=== PATIENT | female | born 1950 | race Caucasian/White ===

== ENCOUNTER → 2022-08-05 | Outpatient (CLI) | payer OTHER ==
--- NOTE | 2022-08-05 16:18 | CT ---
EXAMINATION TYPE: CT cervical spine wo con CT DLP: 457.6 mGycm, Automated exposure control for dose reduction was used. DATE OF EXAM: 08/05/2022 4:10 PM COMPARISON: None. CLINICAL INDICATION:Female, 72 years old with history of S13.4XXA Sprain of ligaments of cervical spi ne; , Sprain of ligaments of cervical spine. TECHNIQUE: Axial CT images from the skull base to the inferior aspect of T2 we obtained without intra venous contrast. Coronal and sagittal reformatted images were also reviewed. FINDINGS: Fracture: None. Osseous structures: Multilevel degenerative disc disease changes with endplate spurring and disc oste ophyte complex's. Vertebral alignment: Alignment within normal limits. Spinal canal/Neural Foramina: No evidence of significant spinal canal narrowing. No evidence for sign ificant neural foraminal stenosis. Neck soft tissues: Prevertebral soft tissues are within normal limits. Other: The airway is patent. The lung apices are clear. Calcification of the nuchal ligament. IMPRESSION: 1. No evidence of cervical spine fracture. 2. Mild multilevel degenerative disc disease.
--- NOTE | 2022-08-05 16:31 | XR ---
EXAMINATION TYPE: XR knee complete RT DATE OF EXAM: 08/05/2022 4:17 PM INDICATION: Patient age:Female; 72 years old; Reason for study: S13.4XXA, S43.401A, S80.01XA; COMPARISON: None. TECHNIQUE: The Right knee(s) was examined in Frontal, lateral and oblique projections. FINDINGS: There is cortical irregularity involving the patella as seen on lateral view. There is a small joint effusion.. No additional suspicious cortical irregularity or defect visualized. There is a fabella present. IMPRESSION: Cortical defect involving the patella articular surface, best seen on lateral view with associated sm all joint effusion. Finding could represent degeneration changes versus traumatic injury. Consider fu rther evaluation with CT.
--- NOTE | 2022-08-05 16:32 | XR ---
EXAMINATION TYPE: XR shoulder complete RT DATE OF EXAM: 08/05/2022 4:17 PM INDICATION: Patient age:Female; 72 years old; Reason for study: S13.4XXA, S43.401A, S80.01XA; COMPARISON: None TECHNIQUE: The right shoulder was examined in AP, internally rotated and scapular Y projections. . FINDINGS: No evidence of acute osseous pathology, joint dislocation, or soft tissue swelling. The remaining por tions of the visualized chest are unremarkable. Mild degeneration of the acromioclavicular joint. IMPRESSION: 1. No acute osseous pathology. 2. Mild osteoarthrosis of the right shoulder.
== END | disposition home or self-care (01) ==
LOC: RADCTMAIN 15:55
PROVIDERS: ATTEND Emergency Medicine
DX: S13.4XXA Sprain of ligaments of cervical spine, initial encounter (principal); S43.401A Unspecified sprain of right shoulder joint, initial encounter; S80.01XA Contusion of right knee, initial encounter; M50.30 Other cervical disc degeneration, unspecified cervical region; M19.011 Primary osteoarthritis, right shoulder; M25.461 Effusion, right knee
CPT/HCPCS: 72125

== ENCOUNTER → 2022-08-10 | Outpatient (CLI) | payer OTHER ==
--- NOTE | 2022-08-10 12:40 | CT ---
EXAMINATION TYPE: CT knee RT wo con CT DLP: 484.1 mGycm, Automated exposure control for dose reduction was used. DATE OF EXAM: 08/10/2022 12:22 PM COMPARISON: 08/05/2022 radiograph CLINICAL INDICATION:Female, 72 years old with history of S80.01XA anterior knee pain, right knee pain TECHNIQUE: Axial images were obtained of the a . Additional coronal and sagittal reformatted images and soft tissue and bone window were obtained for review. 3-D reconstruction was created on a [employer] workstation. Contrast used: None Oral contrast used: None FINDINGS: Cortical defect along the patellar articular surface correlates with degeneration changes w ith full-thickness suspected cartilage loss of the lateral patellar facet. No evidence of acute fract ure. Osteophyte formation of the patellofemoral groove the femoral condyles, tibial plateau and the p atella are present. There is no evidence of fracture, subluxation, or dislocation. No significant so ft tissue swelling or joint effusion is identified. No focal muscular atrophy or edema is identified. No radiopaque foreign body identified. There is a fabella present. IMPRESSION: 1. Cortical defect of the patella correlates with subchondral cystic change likely secondary to full -thickness cartilage defect in the setting of marked patellofemoral joint osteoarthrosis. 2. No evidence of acute fracture.
== END | disposition home or self-care (01) ==
LOC: RADCTMAIN 11:50
PROVIDERS: ATTEND Emergency Medicine
DX: S80.01XA Contusion of right knee, initial encounter (principal); M17.11 Unilateral primary osteoarthritis, right knee

== ENCOUNTER → 2022-08-24 | Outpatient (CLI) | payer OTHER ==
--- NOTE | 2022-08-24 15:01 | MR ---
EXAMINATION TYPE: MR shoulder RT wo con DATE OF EXAM: 08/24/2022 COMPARISON: Radiograph 08/05/2022 HISTORY: 72-year-old female S43.401D, Right shoulder sprain S/P fall. TECHNIQUE: Multiplanar, multisequence imaging of the right shoulder is performed without contrast. FINDINGS: Linear intrinsic signal involving the intracapsular portion of the long head biceps tendon. There is mild tenosynovial fluid along the extracapsular portion which remains appropriate situated along the bicipital groove. Some heterogeneous signal of the subscapularis tendon. The majority of the tendon remains intact. There is moderate degenerative change of the joint with joint space narrowing and marginal spurring. Mild mass effect onto the underlying myotendinous junction of the supraspinatus. There is diffuse heterogeneity and thickening of both supraspinatus and infraspinatus tendons. Extensive bursal sided fraying of the supraspinatus tendon. The anterior to mid fibers of the suprasp inatus tendon are very irregular and demonstrate areas of bursal sided tearing anteriorly and articul ar sided tearing more posteriorly along the mid fibers. Given a small effusion within the overlying s ubacromial/subdeltoid bursa and fluid within the lateral deltoid shelf, unable to exclude subtle, irr egular full-thickness extension of tear. Contiguous intrasubstance tear extends back 9 mm to involve the posterior supraspinatus tendon fibers . No patsy retracted tear is seen. The intraspinous tendon is thickened and inhomogeneous but otherwise intact. Minimal fatty streaks within the rotator cuff musculature, especially the subscapularis muscle. There is edematous thickening throughout the rotator cuff interval. Patsy thickening of the coracohum eral ligament and mild thickening of the axillary recess. Physiologic glenohumeral joint fluid. Mild degenerative change throughout the glenohumeral joint. Some increased signal noted at the superi or glenoid labrum extending to the biceps anchor. No care labral cyst. Suspect a normal variant subla bral foramen. No os acromiale or Hill-Sachs deformity. Heterogeneous red marrow hyperplasia which can be seen in s etting of anemia, obesity, smoking, chronic disease. IMPRESSION: 1. Diffuse rotator cuff tendinosis. There is irregular tear of the anterior to mid supraspinatus tend on fibers involving the bursal surface anteriorly and the articular surface more posteriorly. Given f luid in the overlying bursa and lateral deltoid shelf, suspect subtle irregular full-thickness extens ion of tear. No patsy retracted tear. 2. Suspect interstitial tear of the intracapsular long head biceps tendon and possible contiguous SLA P tear of the superior labrum. Mild overall glenohumeral joint OA. 3. Moderate AC joint OA with mild subacromial impingement. 4. Edematous thickening in the region of the rotator cuff interval. Mild thickening of the axillary r ecess as well. Findings could be secondary to a mild capsular sprain. Correlate for any underlying ch ronic symptoms of adhesive capsulitis.
== END | disposition home or self-care (01) ==
LOC: RADMRIMAIN 13:00
PROVIDERS: ATTEND Emergency Medicine
DX: S43.401D Unspecified sprain of right shoulder joint, subsequent encounter (principal); S13.4XXD Sprain of ligaments of cervical spine, subsequent encounter; M75.111 Incomplete rotator cuff tear or rupture of right shoulder, not specified as traumatic; S80.01XD Contusion of right knee, subsequent encounter; M19.011 Primary osteoarthritis, right shoulder

== ENCOUNTER → 2023-04-08 | Outpatient (CLI) | payer OTHER ==
[2023-04-08 20:06] LABS: Basophils # (A) 0.04 X 10*3/uL (0.00-0.10); Basophils % (A) 0.4 %; Eosinophils # (A) 0.42 X 10*3/uL (0.04-0.35); Eosinophils % (A) 4.7 %; HCT 41.8 % (37.2-46.3); HGB 13.9 d/dL (12.0-15.0); Lymphocytes # (A) 2.54 X 10*3/uL (0.90-5.00); Lymphocytes % (A) 28.5 %; MCH 30.1 pg (27.0-32.0); MCHC 33.3 d/dL (32.0-37.0); MCV 90.5 FL (80.0-97.0); Mean Platelet Volume 10.3 FL (9.5-12.2); Monocytes # (A) 0.66 X 10*3/uL (0.20-1.00); Monocytes % (A) 7.4 %; NRBC Per 100 WBC 0 X 10*3/uL (0.00-0.01); Neutrophils # (A) 5.22 X 10*3/uL (1.80-7.70); Neutrophils % (A) 58.8 %; Platelet Count 238 X 10*3/uL (140-440); RBC 4.62 X 10*6/uL (4.10-5.20); RDW 13.2 % (11.5-14.5)
[2023-04-08 20:15] LABS: BUN/Creat Ratio 21.11 Ratio (12.00-20.00); Calcium 9.8 mg/dL (8.7-10.3); Carbon Dioxide 24.4 mmol/L (21.6-31.8); Chloride 105 mmol/L (96-109); Glucose 84 mg/dL (70-110); Potassium 4.2 mmol/L (3.5-5.5); Sodium 141 mmol/L (135-145)
== END | disposition home or self-care (01) ==
LOC: LABPAT 14:28
PROVIDERS: ATTEND Orthopaedic Surgery
DX: Z01.812 Encounter for preprocedural laboratory examination (principal); M75.41 Impingement syndrome of right shoulder
CPT/HCPCS: 80048; 85025

== ENCOUNTER 2023-04-21 05:47 | Day surgery (SDC) | payer OTHER ==
[2023-04-19 15:48] VITALS: BMI 26.2
[~2023-04-21 05:47] MED LIST: DEXAMETHASONE SOD PHOSPHATE 4 MG/ML 1 ML VIAL IV ONE; LACTATED RINGERS 1,000 ML IV SCH; ONDANSETRON 4 MG/2 ML VIAL IVP ONE
[2023-04-21] MEDS ORDERED: ONDANSETRON 4 MG/2 ML VIAL IVP ONE (06:45)
[2023-04-21] MEDS ORDERED: MIDAZOLAM 2 MG/2 ML VIAL IVP ONE (06:52)
[2023-04-21] MEDS ORDERED: fentaNYL (PF) 50 MCG/ML 2 ML AMP IVP ONE (06:52)
[2023-04-21] MEDS ORDERED: HYDROmorphone 0.5 MG/0.5 ML SYRINGE IVP PRN (07:00)
[2023-04-21] MEDS ORDERED: LACTATED RINGERS 1,000 ML IV ONE (07:04)
--- NOTE | 2023-04-21 07:16 | HP ---
HISTORY AND PHYSICAL DATE OF SURGERY: 04/21/2023. HISTORY OF PRESENT ILLNESS: Cary Barraza is a 73-year-old patient, seen with progressive right shoulder pain. We discussed options. She elected to proceed with right shoulder arthroscopy. Consent was obtained. Medical clearance was provided for the procedure. PAST MEDICAL HISTORY: Hypertension and hyperlipidemia. PAST SURGICAL HISTORY: Noncontributory. DAILY MEDICATIONS: 1. Atorvastatin. 2. Carvedilol. 3. Aspirin. ALLERGIES: None. SOCIAL HISTORY: She denies tobacco use. PHYSICAL EVALUATION OF THE RIGHT SHOULDER: Flexion is 150 degrees, abduction is 120 degrees, external rotation is 40 degrees with weakness. Tenderness along the anterolateral acromion and rotator cuff insertion site. Impingement is positive at 90 degrees. Cross-body adduction sign is positive. Drop- arm sign is positive. Distal neurovascular exam is intact. IMAGING STUDIES: Radiographs of the right shoulder revealed a type 2 acromion, moderate acromioclavicular joint osteoarthritis, and cystic changes of the tuberosity. An MRI right shoulder revealed a full-thickness rotator cuff tendon tear and a superior labral tear as well as a partial biceps tendon tear. IMPRESSION: 1. Right shoulder impingement with rotator cuff tear. 2. Right shoulder acromioclavicular joint osteoarthritis. 3. Right shoulder partial long head biceps tendon tear. 4. Hypertension. 5. Hyperlipidemia. PLAN: Right shoulder arthroscopy with subacromial decompression, rotator cuff repair, Nolvia procedure and debridement. MMODL / IJN: [id number] /
[2023-04-21] MEDS ORDERED: ePHEDrine 50 MG/ML 1 ML VIAL ONE (07:21)
[2023-04-21] MEDS ORDERED: PHENYLEPHRINE-0.9% NACL SYG 1,000 MCG/10 ML SYRINGE ONE (07:21)
[2023-04-21] MEDS ORDERED: fentaNYL (PF) 50 MCG/ML 2 ML AMP ONE (07:21)
[2023-04-21] MEDS ORDERED: SUCCINYLCHOLINE CHLORIDE 200 MG/10 ML VIAL IV ONE (07:21)
[2023-04-21] MEDS ORDERED: MIDAZOLAM 2 MG/2 ML VIAL ONE (07:21)
[2023-04-21] MEDS ORDERED: ROPIVACAINE 5 MG/ML 30 ML VIAL ONE (07:21)
[2023-04-21] MEDS ORDERED: PROPOFOL 10 MG/ML 20 ML VIAL IV ONE (07:21)
--- NOTE | 2023-04-21 09:18 | P.OP ---
Date of Procedure: 04/21/23 Preoperative Diagnosis: Right shoulder impingement Postoperative Diagnosis: 1. Right shoulder rotator cuff tear 2. Right shoulder impingement 3. Right shoulder acromioclavicular joint osteoarthritis 4. Right shoulder partial long head biceps tendon tear 5. Right shoulder superficial anterior labral tear Procedure(s) Performed: 1. Right shoulder arthroscopic rotator cuff repair 2. Right shoulder arthroscopic subacromial decompression 3. Right shoulder arthroscopic Nolvia procedure 4. Right shoulder arthroscopic biceps tenotomy 5. Right shoulder arthroscopic debridement labral tear Implants: 4Arthrex 4.75 swivel lock anchors Anesthesia: GETA, regional (Interscalene block) Surgeon: Merlin Donato Rectifying Operator #1: Bam Gifford Estimated Blood Loss (ml): 7 Pathology: none sent Condition: stable Disposition: PACU Indications for Procedure: 73-year-old patient seen with persistent right shoulder pain. After having treatment options discussed, she elected to proceed with arthroscopy. Operative Findings: See description of procedure Description of Procedure: Patient underwent an interscalene block by department of anesthesia. The patient was then taken to the operative suite. The patient underwent a general anesthetic by the department of anesthesia. The patient was placed into a lateral position and secured. There was appropriate padding of the bony prominence. Right shoulder was then prepped and draped in normal sterile orthopedic fashion. We placed the extremity in 10 pounds of longitudinal traction. A posterior incision was now made for a posterior working portal site. The trocar and cannula were inserted into the glenohumeral joint. Arthroscopy was initiated. Spinal needle was now inserted anteriorly, to ascertain the anterior working portal site. An incision was now made in that area, a trocar was inserted followed by a probe. There was superficial tearing along the anterior labrum. There were some grade 1/2 chondromalacia changes involving the glenoid fossa. There was some partial tearing long head biceps tendon. I performed arthroscopic biceps tenotomy. I debrided the superficial labral tear gained down to stable labral tissue. The residual labrum was probed and was found to be stable. Instruments were now removed from the glenohumeral joint. Utilizing the posterior working portal site, the trocar and cannula were inserted into the subacromial space. Arthroscopy initiated. I made an incision 2 fingerbreadths lateral to the acromion. I introduced my trocar followed by my ArthroCare ablator. I now began ablating thick subacromial bursal tissue, which exposed the undersurface of the anterior acromion. There was diminished subacromial space. There was a very prominent anterior acromion. A motorized bur was introduced and a subacromial decompression was performed. I also excised some osteophytes off the inferior aspect of the distal clavicle. The AC joint was visualized and noted to be fairly arthritic. The motorized bur was introduced in the anterior portal site and a Nolvia procedure was performed without difficulty, decompressing the AC joint nicely. I turned my attention to the rotator cuff. There was a 2.5 cm rotator cuff tear. I debrided the margins getting down to stable tendon tissue. I introduced my motorized bur and abraded the footprint area, getting some petechial bleeding. I now made an accessory portal site off the lateral aspect of the acromion. I punched 2 holes medial for medial row fixation with the assistance of Yovany ADAIR carefully tapping the punch with a mallet as I held the punch and the camera. I now introduced both anchors into the pre-punched holes and Yovany ADAIR tapped them with the mallet as I held anchors and the camera. Yovany ADAIR now screwed the anchors in place a while I held the anchor guide and camera. All 8 limbs of suture were now passed through good bites of rotator cuff tendon. I now punched 2 holes for lateral row fixation again I held the punch and camera while Yovany ADAIR used a mallet to tap in the punch. We now passed sutures through both anchors and individually I introduced the anchors into the pre-punch holes I held the anchor guide in position with one hand holding the camera with the other hand while Yovany ADAIR tensioned the sutures and screwed in the anchors one at a time. All residual suture limbs were now clipped. We had good compression of the tendon along the entire footprint. Instruments now removed from the portal sites. All portal sites were approximated with nylon suture. Sterile dressings were applied followed by a shoulder immobilizer. Bam ADAIR assisted in this complex case. The patient was awakened, transferred to a bed, and taken to recovery in stable condition.
[2023-04-21] MEDS ORDERED: traMADol 50 MG TAB PO ONE ×2 (11:01→11:05)
[2023-04-21] MEDS ORDERED: traMADol 50 MG TAB ONE (11:01)
--- NOTE | 2023-04-21 11:22 | P.ANPRN ---
Procedure Note - Anesthesia - Nerve Block Performed Right Interscalene Single Time Out Performed: Yes ([id number]) Date of Procedure: 04/21/23 Procedure Start Time: 06:52 Procedure Stop Time: 06:57 Location of Patient: PreOp Indication: Acute Post-Operative Pain, Requested by Surgeon Sedation Type: Sedate with meaningful contact maintained Preparation: Sterile Prep Position: Supine Catheter: None Needle Types: Pajunk Needle Gauge: 21 Ultrasound used to visualize needle placement: Yes Ultrasound used to observe medication spread: Yes Injectate: 0.5% Ropivacaine (see comment for volume) (30cc) Blood Aspirated: No Pain Paresthesia on Injection Noted: No Resistance on Injection: Normal Image Stored and Saved: Yes Events: Uneventful and Well Tolerated
[2023-04-21 15:55] VITALS: BP 129/75; PULSE 80; RESP 16; TEMP 96.8
== END 2023-04-21 11:32 | disposition home or self-care (01) ==
LOC: OR 05:47
PROVIDERS: ATTEND Orthopaedic Surgery
DX: S46.111A Strain of muscle, fascia and tendon of long head of biceps, right arm, initial encounter (principal); S43.431A Superior glenoid labrum lesion of right shoulder, initial encounter; M75.101 Unspecified rotator cuff tear or rupture of right shoulder, not specified as traumatic; M75.41 Impingement syndrome of right shoulder; M19.011 Primary osteoarthritis, right shoulder; I10 Essential (primary) hypertension; E78.5 Hyperlipidemia, unspecified; Z79.82 Long term (current) use of aspirin; Z79.899 Other long term (current) drug therapy; X58.XXXA Exposure to other specified factors, initial encounter
CPT/HCPCS: 64415; 29827; 29826; 29824; C1894; C1713; J2250; J0330; J1100; J2405; J0690; J3010; J2795; J2704; J2371

== ENCOUNTER → 2023-12-10 | Outpatient (CLI) | payer BC ==
[2023-12-10 23:10] LABS: ALT 17 U/L (8-44); AST 19 U/L (13-35); Albumin 4.5 g/dL (3.8-4.9); Albumin/Globulin Ratio 1.88 Ratio (1.60-3.17); Alkaline Phosphatase 85 U/L (41-126); Bilirubin, Conjugated <0.20 mg/dL (0.20-0.40); Bilirubin,Unconjugated >0.20 mg/dL (0.20-1.00); C Reactive Protein, High Sens 0.299 mg/L (0.000-3.000); Chol/HDL Ratio 2.28 Ratio; Globulin 2.4 g/dL (1.6-3.3); LDL Cholesterol,Calculated 94.6 mg/dL (0.0-131.0); Total Bilirubin 0.4 mg/dL (0.3-1.2); Total Protein 6.9 g/dL (6.2-8.2); VLDL Calculation 19.48 mg/dL (5.00-40.00)
== END | disposition home or self-care (01) ==
LOC: LABWHC1 09:42
PROVIDERS: ATTEND Internal Medicine Cardiovascular Disease
DX: Z01.810 Encounter for preprocedural cardiovascular examination (principal); E78.5 Hyperlipidemia, unspecified; R03.0 Elevated blood-pressure reading, without diagnosis of hypertension; R07.9 Chest pain, unspecified; R94.31 Abnormal electrocardiogram [ECG] [EKG]; R94.39 Abnormal result of other cardiovascular function study; W18.30XS Fall on same level, unspecified, sequela
CPT/HCPCS: 36415; 80061; 80076; 83090; 86141

== ENCOUNTER 2024-10-07 13:39 | Emergency (ER) | payer MEDICARE ==
[2024-10-07 14:20] VITALS: RESP 18
--- NOTE | 2024-10-07 14:33 | ED ---
General Adult HPI - General Chief complaint: Extremity Injury, Lower Stated complaint: fell R foot injury Time Seen by Provider: 10/07/24 14:21 Source: patient Mode of arrival: ambulatory Limitations: no limitations - History of Present Illness Initial comments: Zoë 74-year-old female presents the ER today for evaluation of foot pain and swelling. Patient reports she had her socks and shoes on when she caught her foot and, she feels like her heel slipped out in the front of her foot states stuck in the shoe and it Just popped. Patient reports that the swelling present since then. She did not hit her head. - Related Data Home Medications Medication Instructions Recorded Confirmed Aspirin 81 mg PO DAILY 04/19/23 04/19/23 Atorvastatin [Lipitor] 20 mg PO HS 04/19/23 04/19/23 Cholecalciferol [Vitamin D3 (25 25 mcg PO DAILY 04/19/23 04/19/23 Mcg = 1000 Iu)] Fish Oil/Dha/Epa [Fish Oil 1,200 1 each PO DAILY 04/19/23 04/19/23 mg Fish Oil] Folic Acid 1 mg PO DAILY 04/19/23 04/19/23 Ginkgo Biloba [place] Extract [Ginkgo 125 mg PO DAILY 04/19/23 04/19/23 Biloba] Magnesium Citrate and Oxide 250 mg PO DAILY 04/19/23 04/19/23 [Magnesium] Nattokinase 1 dose PO DAILY 04/19/23 04/19/23 carvediloL [Coreg] 3.125 mg PO BID 04/19/23 04/19/23 Previous Rx's Medication Instructions Recorded traMADol HCl [Ultram] 50 mg PO Q6H PRN #28 tab 04/21/23 Allergies Allergy/AdvReac Type Severity Reaction Status Date / Time No Known Allergies Allergy Verified 10/07/24 14:20 Review of Systems ROS Statement: Those systems with pertinent positive or pertinent negative responses have been documented in the HPI. ROS Other: All systems not noted in ROS Statement are negative. Past Medical History Past Medical History: Hyperlipidemia, Hypertension Past Surgical History: Orthopedic Surgery Past Psychological History: No Psychological Hx Reported Smoking Status: Former smoker Past Alcohol Use History: None Reported Past Drug Use History: None Reported General Exam - General Exam Comments Initial Comments: Physical Exam GENERAL: Patient is well-developed and well-nourished. Patient is nontoxic and well-hydrated and is in no distress. HENT: Normocephalic, Atraumatic. EYES: PERRL, EOMI PULMONARY: Unlabored respirations. CARDIOVASCULAR: RRR Warm and well perfused extremities ABDOMEN: Non-distended SKIN: No rashes or bruising : Deferred NEUROLOGIC: Alert and oriented Normal speech MUSCULOSKELETAL: Right foot is bruised with significant swelling over the fourth and fifth metatarsal PSYCHIATRIC: No SI/HI Limitations: no limitations Course Vital Signs 10/07/24 14:15 Temperature 97.9 F Pulse Rate 92 Respiratory 18 Rate Blood Pressure 126/69 O2 Sat by Pulse 96 Oximetry Medical Decision Making - Medical Decision Making Was pt. sent in by a medical professional or institution (, MANA, SLOT ATTENDANT, urgent care, hospital, or long-term...) When possible be specific @ -No Did you speak to anyone other than the patient for history (EMS, parent, family, police, friend...)? What history was obtained from this source @ -No Did you review nursing and triage notes (agree or disagree)? Why? @ -I reviewed and agree with nursing and triage notes Were old charts reviewed (outside hosp., previous admission, EMS record, old EKG, old radiological studies, urgent care reports/EKG's, long-term records)? Report findings @ -No old charts were reviewed Differential Diagnosis (chest pain, altered mental status, abdominal pain women, abdominal pain men, vaginal bleeding, weakness, fever, dyspnea, syncope, headache, dizziness, GI bleed, back pain, seizure, CVA, palpatations, mental health)? @ -Fracture, sprain, dislocation EKG interpreted by me (3pts min.). @ -As above X-rays interpreted by me (1pt min.). @ -X-ray of right foot without evidence of a Miller fracture nondisplaced CT interpreted by me (1pt min.). @ -None done U/S interpreted by me (1pt. min.). @ -None done What testing was considered but not performed or refused? (CT, X-rays, U/S, labs)? Why? @ -None What meds were considered but not given or refused? Why? @ -None Did you discuss the management of the patient with other professionals (professionals i.e. Dr., PA, SLOT ATTENDANT, lab, RT, psych nurse, professor of social work, instrument calibrator, teacher, police officer booking, catalytic case operator)? Give summary @ -No Was smoking cessation discussed for >3mins.? @ -No Was critical care preformed (if so, how long)? @ -No Were there social determinants of health that impacted care today? How? (Homelessness, low income, unemployed, alcoholism, drug addiction, transportation, low edu. Level, literacy, decrease access to med. care, alf, rehab)? @ -No Was there de-escalation of care discussed even if they declined (Discuss DNR or withdrawal of care, Hospice)? DNR status @ -No What co-morbidities impacted this encounter? (DM, HTN, Smoking, COPD, CAD, Cancer, CVA, ARF, Chemo, Hep., AIDS, mental health diagnosis, sleep apnea, morbid obesity)? @ -None Was patient admitted / discharged? Hospital course, mention meds given and route, prescriptions, significant lab abnormalities, going to OR and other pertinent info. @ -Patient was seen and evaluated, history is obtained from patient X-rays were obtained reviewed by me there is an oblique fracture of the right fifth please follow up with the [facility] dental clinic. [facility] [place] [address]. Phone number for new patients or [phone] for existing patients. [facility]. Must pay for x-rays then services are free. Call for an appoitnment. consistent with patient's physical exam, patient was placed in a posterior short leg splint and given crutches here in the ER and advised to follow-up with orthopedics or podiatry. Undiagnosed new problem with uncertain prognosis? @ -No Drug Therapy requiring intensive monitoring for toxicity (Heparin, Nitro, Insulin, Cardizem)? @ -No Were any procedures done? @ -No Diagnosis/symptom? @ -Miller fracture right foot Acute, or Chronic, or Acute on Chronic? @ -Acute Uncomplicated (without systemic symptoms) or Complicated (systemic symptoms)? @ -Default Side effects of treatment? @ -No Exacerbation, Progression, or Severe Exacerbation? @ -No Poses a threat to life or bodily function? How? (Chest pain, [place], [place], pneumonia, PE, COPD, DKA, ARF, appy, cholecystitis, CVA, Diverticulitis, Homicidal, Suicidal, threat to staff... and all critical care pts) @ -No Disposition Clinical Impression: Miller fracture Disposition: HOME SELF-CARE Condition: Stable Is patient prescribed a controlled substance at d/c from ED?: No Referrals: Nonstaff,Physician [REFERRING] - 1-2 days Kieran Moses MD [Medical Doctor] - 1-2 days
--- NOTE | 2024-10-07 14:53 | XR ---
EXAMINATION TYPE: XR foot complete RT DATE OF EXAM: 10/07/2024 2:47 PM COMPARISON: None. CLINICAL INDICATION: Female, 74 years old with history of injury, swelling over 4th5th carpal; PHH, p ain TECHNIQUE: XR foot complete RT examined in the AP, oblique, and lateral projections. FINDINGS: Oblique oriented fracture at the base of the fifth metatarsal with evidence of intra-articular extens ion. Soft tissue swelling surrounding the fourth and fifth digits. Interphalangeal degenerative polo es noted. Hallux valgus deformity of the first digit MTP joint with associated adjacent soft tissue s welling and degenerative osteoarthritis. IMPRESSION: Oblique oriented fracture of the base of the fifth metatarsal with surrounding soft tissue edema. [facility], , 10/07/2024 2:51 PM
[2024-10-07 16:17] VITALS: BP 121/74; PULSE 88; TEMP 97.7
== END 2024-10-07 16:17 | disposition home or self-care (01) ==
LOC: EC 13:39
DX: S92.354A Nondisplaced fracture of fifth metatarsal bone, right foot, initial encounter for closed fracture (principal); Z87.891 Personal history of nicotine dependence; W01.0XXA Fall on same level from slipping, tripping and stumbling without subsequent striking against object, initial encounter
CPT/HCPCS: 29515; 99283